=== PATIENT | male | born 1975 | race Caucasian/White ===

== ENCOUNTER 2017-03-04 08:42 | Outpatient (CLI) | payer MEDICARE, MEDICAID ==
[2017-03-04] MEDS ORDERED: BARIUM SULFATE 135 ML BOTTLE PO ONE (09:32)
[2017-03-04] MEDS ORDERED: BARIUM SULFATE 148 GM POWDER PO ONE (09:32)
--- NOTE | 2017-03-07 14:22 | XRAY Report ---
DATE OF SERVICE: 03/04/2017 ESOPHAGRAM: 03/04/2017 CLINICAL INDICATION: Dysphagia. Esophagram was performed in the upright and prone positions. The esophagus is normal in caliber and contractility. No esophageal ulceration, mass lesion, or stricturing is identified. The hypopharynx appears unrema rkable. There is a small sliding hiatal hernia present, which produced reflux during the course of the study. A 13 mm barium pill passed freely through the esophagus and into the stomach. IMPRESSION: SMALL SLIDING HIATAL HERNIA, PRODUCING REFLUX. NO EVIDENCE OF ESOPHAGEAL STRICTURING OR ULCERATION. FLUOROSCOPY TIME: One minute 48 seconds; 16 spot images obtained. TD: 03/04/2017 14:19
== END 2017-03-04 08:43 | disposition home or self-care (01) ==
LOC: DI 08:42
PROVIDERS: ATTEND Surgery
DX: R13.10 Dysphagia, unspecified (principal); K44.9 Diaphragmatic hernia without obstruction or gangrene
CPT/HCPCS: 74220; A9270

== ENCOUNTER 2017-03-28 09:10 | Emergency (ER) | payer MEDICARE, MEDICAID ==
[2017-03-28 09:24] VITALS: BP 122/83
--- NOTE | 2017-03-28 09:37 | ED Physician Documentation ---
PD HPI ABD PAIN - Stated complaint Stated Complaint: STOMACH PX - Chief complaint Chief Complaint: Abd Pain - History obtained from History obtained from: Patient - History of Present Illness Timing - onset: How many days ago (5) Timing - duration: Days (5 days of upper abd pain, worse with eating, associated with nausea but not vomiting. Has some firm stools and needs to strain at times. Was having just small loose amounts out recently.) Timing - details: Gradual onset, Waxing and waning Quality: Cramping, Pain Location: Epigastric Radiation: No: Chest, Lower back Improved by: No: Position Worsened by: Eating. No: Position Associated symptoms: Nausea, Loss of appetite. No: Fever, Vomiting, Diarrhea ( small loose stool with straining), Dysuria, Near syncope / syncope Similar symptoms before: Has not had sx before Recently seen: Not recently seen Review of Systems Constitutional: denies: Fever, Chills Nose: denies: Rhinorrhea / runny nose, Congestion Throat: denies: Sore throat Respiratory: denies: Cough GI: reports: Nausea. denies: Vomiting, Hematemesis, Bloody / black stool : denies: Dysuria, Frequency Neurologic: reports: Generalized weakness. denies: Focal weakness, Numbness, Near syncope Psychiatric: denies: Anxiety, Insomnia Endocrine: denies: Weight loss, Weight gain Immunocompromised: denies: Immunocompromised PD PAST MEDICAL HISTORY - Past Medical History Past Medical History: Yes Cardiovascular: None Respiratory: None Neuro: None Endocrine/Autoimmune: Other GI: GERD, Hepatitis HEENT: None Psych: Anxiety, Schizophrenia Derm: None - Past Surgical History Past Surgical History: Yes - Present Medications Home Medications: Ambulatory Orders Medication Instructions Recorded Confirmed Benztropine [Cogentin] 1 mg PO DAILY 08/03/15 03/28/17 Bupropion HCl [Wellbutrin Sr] 1 tab PO DAILY 08/03/15 03/28/17 Calcium Carbonate 1 tab PO BID 08/03/15 03/28/17 Citalopram [CeleXA] 40 mg PO DAILY 08/03/15 03/28/17 Divalproex Sodium [Depakote] 1 tab PO DAILY 08/03/15 03/28/17 Docusate Sodium 250Mg Capsule 100 mg PO DAILY 08/03/15 03/28/17 [Colace] Hydroxyzine Pamoate [Vistaril] 100 mg PO DAILY 08/03/15 03/28/17 Levothyroxine [Synthroid] 1 tab PO DAILY 08/03/15 03/28/17 Melatonin [Vitajoy] 5 mg PO DAILY 08/03/15 03/28/17 Pantoprazole [Protonix] 1 tab PO DAILY 08/03/15 03/28/17 QUEtiapine [SEROquel] 1 tab PO TID 08/03/15 03/28/17 busPIRone [Buspar] 20 mg PO TID 08/03/15 03/28/17 raNITIdine [Zantac] 1 tab PO BID 08/03/15 03/28/17 Famotidine 20 mg PO DAILY #60 tablet 03/28/17 Ondansetron HCl [Zofran] 4 mg PO Q6H PRN #20 tablet 03/28/17 Polyethylene Glycol 3350 [Miralax] 17 gm PO DAILY #238 g 03/28/17 - Allergies Allergies/Adverse Reactions: Allergies Allergy/AdvReac Type Severity Reaction Status Date / Time Penicillins Allergy Rash Verified 03/28/17 09:24 - Living Situation Living Situation: reports: Alone Living Arrangement: reports: [facility] - Social History Does the pt smoke?: Yes Smoking Status: Current every day smoker Does the pt drink ETOH?: No Does the pt have substance abuse?: No - Family History Family history: reports: Non contributory - Immunizations Immunizations are current?: Yes - POLST Patient has POLST: Yes PD ED PE NORMAL - Vitals Vital signs reviewed: Yes - General General: Alert and oriented X 3, Well developed/nourished - HEENT HEENT: PERRL (nonicteric), Ears normal, Pharynx benign - Neck Neck: Supple, no meningeal sign, No adenopathy - Cardiac Cardiac: RRR, No murmur - Respiratory Respiratory: Clear bilaterally - Abdomen Abdomen: Normal bowel sounds, Soft, Non distended, No organomegaly, Other (mild in epigastric area without guarding nor percussion tenderness. ) - Male Male : Deferred - Rectal Rectal: Deferred - Back Back: No CVA TTP - Derm Derm: Normal color, Warm and dry Results - Vitals Vitals: Vital Signs - 24 hr 03/28/17 09:21 Temperature 36.9 C Heart Rate 84 Respiratory 16 Rate Blood Pressure 122/83 H O2 Saturation 98 Oxygen O2 Source Room air - Labs Labs: Laboratory Tests 03/28/17 03/28/17 11:05 11:05 WBC 9.5 RBC 5.51 Hgb 17.0 Hct 48.8 MCV 88.5 MCH 30.8 MCHC 34.8 RDW 13.5 Plt Count 255 MPV 7.4 Neut # 6.0 Lymph # 2.6 [place] # 0.7 Eos # 0.1 Baso # 0.0 Absolute Nucleated RBC 0.00 Band Neuts % (Manual) Not Reportable Abnorm Lymph % (Manual) Not Reportable Nucleated RBC % 0.0 Neutrophils # (Manual) Not Reportable Lymphocytes # (Manual) Not Reportable Monocytes # (Manual) Not Reportable Eosinophils # (Manual) Not Reportable Basophils # (Manual) Not Reportable Differential Comment MANUAL=AUTO DIFF Manual Slide Review Indicated WBC Morphology NORMAL APPEARANCE Platelet Estimate NORMAL (130-450,000) Platelet Morphology NORMAL APPEARANCE RBC Morph Micro Appear NORMAL APPEARANCE Sodium 139 Potassium 4.0 Chloride 102 Carbon Dioxide 25 Anion Gap 12.0 BUN 12 Creatinine 1.0 Estimated GFR (MDRD) 82 L Glucose 89 Calcium 9.1 Total Bilirubin 0.7 AST 22 ALT 38 Alkaline Phosphatase 44 Total Protein 6.9 Albumin 4.2 Globulin 2.7 Albumin/Globulin Ratio 1.6 Lipase 20 L PD MEDICAL DECISION MAKING - ED course Complexity details: reviewed results, considered differential (upper abd pain worse with eating. Seems likely gastritis. He says he had had some constipation as well, so will give softener too. ), d/w patient Departure - Departure Disposition: 01 Home, Self Care Clinical Impression: Abdominal pain Qualifiers: Abdominal location: upper abdomen, unspecified Qualified Code(s): R10.10 - Upper abdominal pain, unspecified Gastritis Qualifiers: Gastritis type: unspecified gastritis Chronicity: acute Gastritis bleeding: without bleeding Qualified Code(s): K29.00 - Acute gastritis without bleeding Condition: Stable Record reviewed to determine appropriate education?: Yes Instructions: Abdominal Pain Prescriptions: Famotidine 20 mg PO DAILY #60 tablet Ondansetron HCl [Zofran] 4 mg PO Q6H PRN #20 tablet PRN Reason: Nausea / Vomiting Polyethylene Glycol 3350 [Miralax] 17 gm PO DAILY #238 g Comments: Continue usual medications. Add famotidine daily to reduce stomach acids. Add MiraLAX daily to promote stool softening. Add ondansetron if needed for nausea. Follow-up with your primary care. At the outpatient barium swallow your been scheduled for on Friday as it is rescheduled. Discharge Date/Time: 03/28/17 12:29
[2017-03-28] MEDS ORDERED: MAG HYDROX/AL HYDROX/SIMETH 30 ML UDC PO STA (10:59)
[2017-03-28] MEDS ORDERED: FAMOTIDINE 20 MG TABLET PO STA (10:59)
[2017-03-28 11:13] LABS: BASOPHILS % (AUTO) 0.4 %; EOSINOPHILS # (AUTO) 0.1 10^3/uL (0.0-0.7); LYMPHOCYTES # (AUTO) 2.6 10^3/uL (1.5-3.5); LYMPHOCYTES % (AUTO) 27.6 %; MEAN CORPUSCULAR HEMOGLOBIN 30.8 pg (27.0-31.0); MEAN CORPUSCULAR HGB CONC 34.8 g/dL (32.0-36.0); MEAN CORPUSCULAR VOLUME 88.5 fL (80.0-94.0); MEAN PLATELET VOLUME 7.4 fL (7.4-11.4); MONOCYTES # (AUTO) 0.7 10^3/uL (0.0-1.0); MONOCYTES % (AUTO) 7.5 %; NEUTROPHILS % (AUTO) 63.5 %; PLT - PLATELET COUNT 255 10^3/uL (130-450); RED BLOOD COUNT 5.51 10^6/uL (4.70-6.10); RED CELL DISTRIBUTION WIDTH 13.5 % (12.0-15.0); WHITE BLOOD COUNT 9.5 x10^3/uL (4.8-10.8)
[2017-03-28 11:25] LABS: ALBUMIN 4.2 g/dL (3.2-5.5); ALBUMIN/GLOBULIN RATIO 1.6 (1.0-2.2); BILIRUBIN,TOTAL 0.7 mg/dL (0.2-1.0); CALCIUM 9.1 mg/dL (8.5-10.3); TOTAL PROTEIN 6.9 g/dL (6.7-8.2)
[2017-03-28 11:31] LABS: DIFFERENTIAL COMMENT MANUAL=AUTO DIFF; PLATELET ESTIMATE, MANUAL NORMAL (130-450,000) (NORMAL); PLATELET MORPHOLOGY NORMAL APPEARANCE (NORMAL); RBC MORPHOLOGY (MULTIPLE) NORMAL APPEARANCE (NORMAL)
== END 2017-03-28 12:29 | disposition home or self-care (01) ==
LOC: ED 09:10
DX: R10.10 Upper abdominal pain, unspecified (principal); K29.00 Acute gastritis without bleeding; K75.9 Inflammatory liver disease, unspecified; F17.200 Nicotine dependence, unspecified, uncomplicated
CPT/HCPCS: 36415; 80053; 83690; 85025; 99283; A9270

== ENCOUNTER 2017-03-31 13:02 | Outpatient (CLI) | payer MEDICARE, MEDICAID ==
[2017-03-31] MEDS ORDERED: BARIUM SULFATE 176 GM BOTTLE PO ONE (14:09)
[2017-03-31] MEDS ORDERED: BARIUM SULFATE 135 ML BOTTLE PO ONE (14:09)
--- NOTE | 2017-03-31 16:18 | XRAY Report ---
DATE OF SERVICE: 03/31/2017 ESOPHAGRAM: 03/31/2017 CLINICAL INDICATION: Dysphagia. COMPARISON: 03/04/2017. FINDINGS: Esophagram was performed in the upright and prone positions. The esophagus is normal in caliber. No ulceration, stricturing, or mass lesion is evident. A small sliding hiatal hernia is again seen, producing reflux. The hypopharynx appears unremarkable. A 13 mm barium pill passed freely through the esophagus and into the stomach. IMPRESSION: STABLE SMALL SLIDING HIATAL HERNIA, PRODUCING REFLUX. NO EVIDENCE OF ESOPHAGEAL STRICTURING OR ULCERATION. FLUOROSCOPY TIME: 2 MINUTES 18 SECONDS; 20 SPOT IMAGES OBTAINED. TD: 03/31/2017 17:17
== END 2017-03-31 13:03 | disposition home or self-care (01) ==
LOC: DI 13:02
PROVIDERS: ATTEND Surgery
DX: K44.9 Diaphragmatic hernia without obstruction or gangrene (principal); K21.9 Gastro-esophageal reflux disease without esophagitis
CPT/HCPCS: 74220; A9270

== ENCOUNTER 2017-05-01 09:08 | Day surgery (SDC) | payer MEDICARE, MEDICAID ==
[2017-05-01] MEDS ORDERED: LACTATED RINGERS 1,000 ML IV ONE (09:38)
--- NOTE | 2017-05-01 11:26 | HISTORY & PHYSICAL EXAMINATION ---
HPI - History of Present Illness HPI Comment/Other: Patient here for EGD to evaluate dysphagia and GERD. He is on Ranitidine and Omeprazole daily Past Medical History: Reviewed history and no changes required: Frequent Indigestion Heartburn Acid Reflux Hepatitis C Thyroid cancer, thyroidectomy, 2017 Depression Anxiety Schizophrenia, axis 1 Past Surgical History: Reviewed history and no changes required: Thyroidectomy, 2017 Family History Summary: Reviewed history and no changes required: 02/18/2017 Mother (biol.) - Has Family History of Other Medical Problems - cancer history - Entered On: 02/18/2017 Father (biol.) - Has Family History of Other Medical Problems - unknown - Entered On: 02/18/2017 Social History: Reviewed history and no changes required: Risk Factors: Smoked Tobacco Use: Current every day smoker Cigarettes: Yes -- 1-10/cig/day pack(s) per day,Drug use: no Alcohol use: no Exercise: yes Times per week: 7 Type of Exercise: paces in unit day and night Problems were reviewed with the patient during this visit. Medications were reviewed with the patient during this visit. Allergies were reviewed with the patient during this visit. No known allergies. Physical Exam General: healthy appearing and unkept. Neck: collar incisional scar Lungs: clear bilaterally to A & P Heart: regular rate and rhythm, S1, S2 without murmurs, rubs, gallops, or clicks Abdomen: bowel sounds positive; abdomen soft and non-tender without masses, organomegaly, or hernias noted Pulses: pulses normal in all 4 extremities Extremities: no clubbing, cyanosis, edema, or deformity noted with normal full range of motion of all joints Cervical Nodes: no significant adenopathy Psych: easily distracted, poor concentration and poor memory. Impression & Recommendations: Problem # 1: dysphagia and GERD Barium swallow done and demonstrates small hiatal hernia. Will proceed with EGD. PMH/PSH - Past Medical History Cardiovascular: positive: None Respiratory: positive: None Neuro: positive: None Endocrine/Autoimmune: positive: Other GI: positive: GERD, Hepatitis HEENT: positive: None Psych: positive: Anxiety, Schizophrenia Derm: positive: None MRSA Hx?: No Social & Family Hx - Social History Does the pt smoke?: Yes Smoking Status: Current every day smoker Does the pt drink ETOH?: No Does the pt have substance abuse?: No - POLST Patient has POLST: Yes Meds/Allgy - Home Medications Home Medications: Ambulatory Orders Medication Instructions Recorded Confirmed Benztropine [Cogentin] 1 mg PO DAILY 08/03/15 03/28/17 Bupropion HCl [Wellbutrin Sr] 1 tab PO DAILY 08/03/15 03/28/17 Calcium Carbonate 1 tab PO BID 08/03/15 03/28/17 Citalopram [CeleXA] 40 mg PO DAILY 08/03/15 03/28/17 Divalproex Sodium [Depakote] 1 tab PO DAILY 08/03/15 03/28/17 Docusate Sodium 250Mg Capsule 100 mg PO DAILY 08/03/15 03/28/17 [Colace] Hydroxyzine Pamoate [Vistaril] 100 mg PO DAILY 08/03/15 03/28/17 Levothyroxine [Synthroid] 1 tab PO DAILY 08/03/15 03/28/17 Melatonin [Vitajoy] 5 mg PO DAILY 08/03/15 03/28/17 Pantoprazole [Protonix] 1 tab PO DAILY 08/03/15 03/28/17 QUEtiapine [SEROquel] 1 tab PO TID 08/03/15 03/28/17 busPIRone [Buspar] 20 mg PO TID 08/03/15 03/28/17 raNITIdine [Zantac] 1 tab PO BID 08/03/15 03/28/17 Famotidine 20 mg PO DAILY #60 tablet 03/28/17 Ondansetron HCl [Zofran] 4 mg PO Q6H PRN #20 tablet 03/28/17 Polyethylene Glycol 3350 [Miralax] 17 gm PO DAILY #238 g 03/28/17 - Allergies Allergies/Adverse Reactions: Allergies Allergy/AdvReac Type Severity Reaction Status Date / Time Penicillins Allergy Rash Verified 03/28/17 09:24 Exam - Vital Signs Vital Signs: Vital Signs x48h Temp Pulse Resp BP Pulse Ox 05/01/17 09:20 36.2 C L 82 18 130/99 H 96
[2017-05-01] MEDS ORDERED: fentaNYL 100 MCG/2 ML VIAL IVP ONE (11:27)
[2017-05-01] MEDS ORDERED: MIDAZOLAM 2 MG/2 ML VIAL IVP ONE (11:27)
[2017-05-01 12:37] VITALS: BP 105/78
== END 2017-05-01 09:09 | disposition home or self-care (01) ==
LOC: SDS 09:08
PROVIDERS: ATTEND Surgery
PROC: 0DB78ZX Excision of Stomach, Pylorus, Via Natural or Artificial Opening Endoscopic, Diagnostic (ICD-10-PCS; principal; 2017-05-01 10:45)
DX: R13.10 Dysphagia, unspecified (principal); K29.50 Unspecified chronic gastritis without bleeding; K44.9 Diaphragmatic hernia without obstruction or gangrene; K21.9 Gastro-esophageal reflux disease without esophagitis; F17.210 Nicotine dependence, cigarettes, uncomplicated
CPT/HCPCS: 43239; J7120

== ENCOUNTER 2017-07-03 10:12 | Outpatient (CLI) | payer MEDICARE, MEDICAID ==
--- NOTE | 2017-07-03 12:07 | XRAY Report ---
THREE VIEW LEFT FOOT: 07/03/2017 CLINICAL INDICATION: Pain, edema. FINDINGS: AP, lateral, oblique views of the left foot demonstrate no evidence of acute fracture or dislocation. The joint spaces are preserved. No foreign body is seen in the soft tissues. IMPRESSION: NORMAL LEFT FOOT. TD: 07/03/2017 12:06
== END 2017-07-03 10:13 | disposition home or self-care (01) ==
LOC: DI.N 10:12
PROVIDERS: ATTEND Podiatrist
DX: M79.672 Pain in left foot (principal); R60.0 Localized edema

== ENCOUNTER 2018-09-28 08:00 | Outpatient (CLI) | payer MEDICARE, MEDICAID ==
[2018-09-28 18:37] LABS: BASOPHILS % (AUTO) 0.8 %; EOSINOPHILS % (AUTO) 2.7 %; HGB - HEMOGLOBIN 15.4 g/dL (14.0-18.0); LYMPHOCYTES % (AUTO) 37.7 %; MEAN CORPUSCULAR HEMOGLOBIN 31.8 pg (27.0-31.0); MEAN CORPUSCULAR HGB CONC 33.3 g/dL (32.0-36.0); MEAN CORPUSCULAR VOLUME 95.3 fL (80.0-94.0); MEAN PLATELET VOLUME 10.1 fL (7.4-11.4); MONOCYTES % (AUTO) 8.1 %; NEUTROPHILS % (AUTO) 45.5 %; PLT - PLATELET COUNT 332 10^3/uL (130-450); RED BLOOD COUNT 4.85 10^6/uL (4.70-6.10); RED CELL DISTRIBUTION WIDTH 12.4 % (12.0-15.0); WHITE BLOOD COUNT 7.5 x10^3/uL (4.8-10.8)
[2018-09-28 18:52] LABS: ABNORMAL LYMPHS % (MANUAL) 0 %
[2018-09-28 19:17] LABS: ALBUMIN 3.9 g/dL (3.2-5.5); ALBUMIN/GLOBULIN RATIO 1.4 (1.0-2.2); ALKALINE PHOSPHATASE 35 IU/L (42-121); ALT ALANINE AMINOTRANSFERASE 41 IU/L (10-60); AST ASPARTATE AMINOTRANSFERASE 29 IU/L (10-42); BILIRUBIN,TOTAL 0.4 mg/dL (0.2-1.0); BUN - BLOOD UREA NITROGEN 16 mg/dL (6-20); CALCIUM 9.5 mg/dL (8.5-10.3); CARBON DIOXIDE - CO2 26 mmol/L (21-32); CHLORIDE 104 mmol/L (101-111); CREATININE 1.3 mg/dL (0.6-1.2); GFR - MDRD 60 (>89); GLUCOSE 125 mg/dL (70-100); SODIUM 143 mmol/L (135-145); TOTAL PROTEIN 6.7 g/dL (6.7-8.2); VALPROIC ACID (DEPAKOTE) 48.4 ug/mL
[2018-09-28 19:23] LABS: BAND NEUTROPHILS % (MANUAL) 4 %; DIFFERENTIAL COMMENT MANUAL DIFFERENTIAL; LYMPHOCYTES # (MANUAL) 3.2 10^3/uL (1.5-3.5); LYMPHOCYTES % (MANUAL) 43 %; METAMYELOCYTES % (MANUAL) 1 %; MONOCYTES # (MANUAL) 0.5 10^3/uL (0.0-1.0); NEUTROPHILS # (MANUAL) 3.8 10^3/uL (1.5-6.6); NEUTROPHILS % (MANUAL) 46 %; PLATELET ESTIMATE, MANUAL NORMAL (130-450,000) (NORMAL); PLATELET MORPHOLOGY NORMAL APPEARANCE (NORMAL); RBC MORPHOLOGY (MULTIPLE) NORMAL APPEARANCE (NORMAL)
== END 2018-09-28 23:59 | disposition home or self-care (01) ==
LOC: LAB.N 08:00
PROVIDERS: ATTEND Nurse Practitioner
DX: Z79.899 Other long term (current) drug therapy (principal)
CPT/HCPCS: 36415; 80053; 80164; 85025

== ENCOUNTER 2019-04-03 14:11 | Outpatient (CLI) | payer MEDICARE, MEDICAID ==
[2019-04-03 15:28] LABS: BASOPHILS % (AUTO) 0.5 %; EOSINOPHILS # (AUTO) 0.1 10^3/uL (0.0-0.7); HGB - HEMOGLOBIN 15.6 g/dL (14.0-18.0); LYMPHOCYTES # (AUTO) 1.7 10^3/uL (1.5-3.5); LYMPHOCYTES % (AUTO) 29.7 %; MEAN CORPUSCULAR HEMOGLOBIN 31.3 pg (27.0-31.0); MEAN CORPUSCULAR HGB CONC 34.2 g/dL (32.0-36.0); MEAN CORPUSCULAR VOLUME 91.4 fL (80.0-94.0); MEAN PLATELET VOLUME 10.3 fL (7.4-11.4); MONOCYTES # (AUTO) 0.5 10^3/uL (0.0-1.0); MONOCYTES % (AUTO) 8.7 %; NEUTROPHILS # (AUTO) 3.4 10^3/uL (1.5-6.6); NEUTROPHILS % (AUTO) 59.1 %; PLT - PLATELET COUNT 289 10^3/uL (130-450); RED BLOOD COUNT 4.99 10^6/uL (4.70-6.10); RED CELL DISTRIBUTION WIDTH 12.2 % (12.0-15.0); WHITE BLOOD COUNT 5.8 x10^3/uL (4.8-10.8)
[2019-04-03 15:41] LABS: ALBUMIN 4.1 g/dL (3.2-5.5); ALBUMIN/GLOBULIN RATIO 1.6 (1.0-2.2); ALKALINE PHOSPHATASE 31 IU/L (42-121); ALT ALANINE AMINOTRANSFERASE 63 IU/L (10-60); AST ASPARTATE AMINOTRANSFERASE 38 IU/L (10-42); BILIRUBIN,TOTAL 0.8 mg/dL (0.2-1.0); BUN - BLOOD UREA NITROGEN 10 mg/dL (6-20); CALCIUM 9.3 mg/dL (8.5-10.3); CARBON DIOXIDE - CO2 28 mmol/L (21-32); CHLORIDE 104 mmol/L (101-111); CHOL/HDL RATIO 3.8 (<5.0); CHOLESTEROL 126 mg/dL; CREATININE 1.4 mg/dL (0.6-1.2); GFR - MDRD 55 (>89); GLUCOSE 88 mg/dL (70-100); HDL CHOLESTEROL 33 mg/dL; LDL CHOLESTEROL,CALCULATED 63 mg/dL; LDL/HDL RATIO 1.9 (<3.6); SODIUM 141 mmol/L (135-145); TOTAL PROTEIN 6.6 g/dL (6.7-8.2); VLDL CHOLESTEROL 30 mg/dL
[2019-04-03 15:54] LABS: THYROID STIMULATING HORMONE < 0.08 uIU/mL (0.34-5.60)
[2019-04-03 15:57] LABS: FREE T4 (FREE THYROXINE) 1.41 ng/dL (0.58-1.64)
[2019-04-03 16:00] LABS: HB2 TOTAL 15.9 g/dL; HEMOGLOBIN A1C 0.53 g/dL; HEMOGLOBIN A1C % 5.2 % (4.6-6.2)
[2019-04-03 16:37] LABS: VALPROIC ACID (DEPAKOTE) 45.7 ug/mL
== END 2019-04-03 23:59 | disposition home or self-care (01) ==
LOC: LAB.R 14:11
PROVIDERS: ATTEND Registered Nurse
DX: Z51.81 Encounter for therapeutic drug level monitoring (principal); Z79.899 Other long term (current) drug therapy; E78.5 Hyperlipidemia, unspecified
CPT/HCPCS: 80053; 80061; 80164; 83036; 83721; 84439; 84443; 85025

== ENCOUNTER 2019-05-07 09:30 | Outpatient (CLI) | payer MEDICAID, MEDICARE, OTHER ==
[2019-05-07 12:11] LABS: THYROID STIMULATING HORMONE 6.24 uIU/mL (0.34-5.60)
[2019-05-07 12:13] LABS: FREE T4 (FREE THYROXINE) 0.8 ng/dL (0.58-1.64)
== END 2019-05-07 23:59 | disposition home or self-care (01) ==
LOC: LAB.R 09:30
PROVIDERS: ATTEND Registered Nurse
DX: E03.9 Hypothyroidism, unspecified (principal)
CPT/HCPCS: 84439; 84443

== ENCOUNTER 2019-12-01 08:00 | Outpatient (CLI) | payer OTHER ==
[2019-12-01 09:18] LABS: BASOPHILS # (AUTO) 0.1 10^3/uL (0.0-0.1); BASOPHILS % (AUTO) 0.9 %; EOSINOPHILS # (AUTO) 0.1 10^3/uL (0.0-0.7); HGB - HEMOGLOBIN 15.4 g/dL (14.0-18.0); LYMPHOCYTES # (AUTO) 2.8 10^3/uL (1.5-3.5); LYMPHOCYTES % (AUTO) 40.2 %; MEAN CORPUSCULAR HEMOGLOBIN 33.2 pg (27.0-31.0); MEAN CORPUSCULAR HGB CONC 36.1 g/dL (32.0-36.0); MEAN PLATELET VOLUME 9.7 fL (7.4-11.4); MONOCYTES # (AUTO) 0.6 10^3/uL (0.0-1.0); MONOCYTES % (AUTO) 9.2 %; NEUTROPHILS # (AUTO) 3.2 10^3/uL (1.5-6.6); NEUTROPHILS % (AUTO) 45.4 %; PLT - PLATELET COUNT 212 10^3/uL (130-450); RED BLOOD COUNT 4.64 10^6/uL (4.70-6.10); RED CELL DISTRIBUTION WIDTH 11.8 % (12.0-15.0); WHITE BLOOD COUNT 6.9 x10^3/uL (4.8-10.8)
[2019-12-01 09:27] LABS: ALBUMIN 3.7 g/dL (3.2-5.5); ALBUMIN/GLOBULIN RATIO 1.4 (1.0-2.2); ALKALINE PHOSPHATASE 36 IU/L (42-121); ALT ALANINE AMINOTRANSFERASE 38 IU/L (10-60); AST ASPARTATE AMINOTRANSFERASE 21 IU/L (10-42); BILIRUBIN,TOTAL 0.7 mg/dL (0.2-1.0); BUN - BLOOD UREA NITROGEN 12 mg/dL (6-20); CALCIUM 8.8 mg/dL (8.5-10.3); CARBON DIOXIDE - CO2 26 mmol/L (21-32); CHLORIDE 102 mmol/L (101-111); CREATININE 0.8 mg/dL (0.6-1.2); GLUCOSE 117 mg/dL (70-100); SODIUM 140 mmol/L (135-145); TOTAL PROTEIN 6.3 g/dL (6.7-8.2); VALPROIC ACID (DEPAKOTE) 67.1 ug/mL
== END 2019-12-01 23:59 | disposition home or self-care (01) ==
LOC: LAB.R 08:00
PROVIDERS: ATTEND Registered Nurse
DX: Z00.00 Encounter for general adult medical examination without abnormal findings (principal); Z51.81 Encounter for therapeutic drug level monitoring
CPT/HCPCS: 80053; 80164; 85025

== ENCOUNTER 2019-12-31 15:30 | Outpatient (CLI) | payer OTHER ==
[2019-12-31 16:03] LABS: BASOPHILS % (AUTO) 0.6 %; EOSINOPHILS # (AUTO) 0.1 10^3/uL (0.0-0.7); EOSINOPHILS % (AUTO) 1.2 %; HGB - HEMOGLOBIN 16.2 g/dL (14.0-18.0); LYMPHOCYTES # (AUTO) 2.8 10^3/uL (1.5-3.5); LYMPHOCYTES % (AUTO) 40.8 %; MEAN CORPUSCULAR HEMOGLOBIN 33.2 pg (27.0-31.0); MEAN CORPUSCULAR HGB CONC 35.6 g/dL (32.0-36.0); MEAN CORPUSCULAR VOLUME 93.2 fL (80.0-94.0); MEAN PLATELET VOLUME 9.7 fL (7.4-11.4); MONOCYTES # (AUTO) 0.6 10^3/uL (0.0-1.0); NEUTROPHILS # (AUTO) 3.1 10^3/uL (1.5-6.6); NEUTROPHILS % (AUTO) 45.7 %; PLT - PLATELET COUNT 238 10^3/uL (130-450); RED BLOOD COUNT 4.88 10^6/uL (4.70-6.10); RED CELL DISTRIBUTION WIDTH 11.9 % (12.0-15.0); WHITE BLOOD COUNT 6.8 x10^3/uL (4.8-10.8)
== END 2019-12-31 23:59 | disposition home or self-care (01) ==
LOC: LAB.R 15:30
PROVIDERS: ATTEND Registered Nurse
DX: B18.2 Chronic viral hepatitis C (principal)
CPT/HCPCS: 85025